=== PATIENT | male | born 2000 | race Caucasian/White ===

== ENCOUNTER 2023-07-06 17:11 | Emergency (ER) | payer OTHER, SELFPAY ==
[2023-07-06 17:14] VITALS: BP 167/96; PULSE 73; RESP 18; TEMP 36.9; O2SAT 99
[2023-07-06 17:21] VITALS: O2SAT 100
--- NOTE | 2023-07-06 17:23 | ED.DENTAL1 ---
HPI - Dental/Oral General Chief complaint: Dental/Oral Stated complaint: Dental Pain Time Seen by Provider: 07/06/23 17:18 Source: patient Mode of arrival: walk-in Limitations: no limitations History of Present Illness HPI Narrative: 22-year-old male presents her chief complaint of dental pain. Patient has multiple dental caries. No facial edema or abscesses appreciated. Patient has chronic pain to dentition #3 and four.Patient states he wasTo follow-up with his dentist recently but missed the appointment because he had to work. Patient is afebrile. He is not taking any medications for this recently. Location: Tooth # (3,4) Related Data Previous Rx's Medication Instructions Recorded clindamycin HCl 300 mg capsule 300 mg PO Q8H 10 days #30 caps 07/06/23 Allergies Allergy/AdvReac Type Severity Reaction Status Date / Time No Known Drug Allergies Allergy Verified 07/06/23 17:14 Review of Systems ROS Narrative All Systems are negative except as noted/marked.All systems reviewed and otherwise negative Exam Narrative Exam Narrative: General: The patient is comfortable, alert and oriented x3, well appearing, non toxic in no apparent distress. Head: Atraumatic and normocephalic. Eyes: Normal conjunctiva, no exudates. ENT: The oropharynx is normal. No pharyngeal erythema, uvular edema, tonsillar exudates, asymmetry or trismus. Uvula is midline. Mouth is normal to inspection With the exception of a pain on percussion of the tooth # 3,4 and evidence of dental caries. There is no evidence of facial asymmetry or abscess formation. Floor of the mouth is soft. No tenderness in the submental or submandibular space. No tongue elevation or deviation. The patient has no evidence of periapical abscess, gingivitis, ANUG or other acute pathology. Airway is patent. Neck: The neck demonstrates normal range of motion. No meningeals signs are present. No stridor. No masses or lymphandenopathy noted. Respiratory: No acute distress, lungs are clear to auscultation, no wheezing, rhonchi, or rales noted. No stridor or retractions are noted. Cardiovascular: Regular rate and rhythm Skin: The skin exam shows no evidence of rashes Neuro: Alert and oriented x4, normal speech Lymphatic: No cervical lymphadenopathy Constitutional Vital Signs, click to edit/add: Last Vital Signs Temp 98.4 F 07/06/23 17:14 Pulse 73 07/06/23 17:14 Resp 18 07/06/23 17:14 BP 167/96 H 07/06/23 17:14 Pulse Ox 100 07/06/23 17:21 O2 Del Method Room Air 07/06/23 17:21 Course Vital Signs Vital signs: Vital Signs Temperature 98.4 F 07/06/23 17:14 Pulse Rate 73 07/06/23 17:14 Respiratory Rate 18 07/06/23 17:14 Blood Pressure 167/96 H 07/06/23 17:14 Pulse Oximetry 99 07/06/23 17:14 Temperature 98.4 F 07/06/23 17:14 Pulse Rate 73 07/06/23 17:14 Respiratory Rate 18 07/06/23 17:14 Blood Pressure 167/96 H 07/06/23 17:14 Pulse Oximetry 100 07/06/23 17:21 Oxygen Delivery Method Room Air 07/06/23 17:21 MDM - Dental/Oral MDM Narrative Medical decision making narrative: Patient presented with chronic dental pain which has worsened over last several days. No acute abscess appreciated. Patient be given a prescription for clindamycin. Encouraged follow-up with his dentist. Wrist return to the emergency room were discussed. Patient also be discharged home with dental anesthesia from here in the emergency room. Differential Diagnosis Differential diagnosis: Likely dental caries, toothache and dental abscess Discharge Plan Discharge Chief Complaint: Dental/Oral Clinical Impression: Dental caries, Toothache Patient Disposition: Home, Self-Care Time of Disposition Decision: 17:22 Condition: Good Prescriptions / Home Meds: New clindamycin HCl 300 mg capsule 300 mg PO Q8H 10 Days Qty: 30 0RF Instructions: Toothache (ED) Stand Alone Forms: Portal Instructions Referrals: Physician,Non-Staff, MD [Primary Care Provider] - 1 week
[2023-07-06] MEDS: BENZOCAINE 30 ML, lidocaine HCL 15 ML MM (17:30)
== END 2023-07-06 17:38 | disposition home or self-care (01) ==
PROVIDERS: Emergency Provider Emergency Medicine Emergency Medical Services
DX: K02.9 Dental caries, unspecified (principal); K08.89 Other specified disorders of teeth and supporting structures
CPT/HCPCS: 99283

== ENCOUNTER 2023-10-11 05:49 | Observation (INO) | payer OTHER, SELFPAY ==
[2023-10-11] VITALS (32 sets, daily range): BP systolic 108–147; BP diastolic 60–94; PULSE 49–93; TEMP 36.3–36.6; O2SAT 95–100; BMI 22.4
--- NOTE | 2023-10-11 | XR_ITS ---
The [address] [address] Patient Name: YOKO ANGEL MRN: [id number] date: 2000 Sex: M Assigned Patient Location: ER Current Patient Location: ER Accession/Order Number: [id number] Exam Date: 10/11/2023 09:25 Report Date: 10/11/2023 09:38 At the request of: BRYCE MEREDITH Procedure: XR foreign body eye EXAMINATION: XR foreign body eye HISTORY: pre MRI COMPARISON: No relevant comparison available. FINDINGS: ORBITS: Negative for a metallic foreign body. OTHER: Negative. XR/XR foreign body eye IMPRESSION: 1. No metallic foreign body within the orbits. Electronically authenticated by: HAO HODGE Date: 10/11/2023 09:38
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
--- NOTE | 2023-10-11 06:37 | CT_ITS ---
The [address] [address] Patient Name: YOKO ANGEL MRN: [id number] date: 2000 Sex: M Assigned Patient Location: ER Current Patient Location: ER Accession/Order Number: [id number] Exam Date: 10/11/2023 07:00 Report Date: 10/11/2023 07:35 At the request of: VIOLA MARKER Procedure: CT stroke head/brain wo con EXAMINATION: CT stroke head/brain wo con HISTORY: right sided weakness COMPARISON: No relevant comparison available. TECHNIQUE: Axial CT images were obtained without IV contrast. Dose reduction techniques were achieved by using automated exposure control and/or adjustment of mA and/or kV according to patient size and/or use of iterative reconstruction technique. FINDINGS: BRAIN: No edema, hemorrhage, mass, acute infarction, or inappropriate atrophy. CSF SPACES: No hydrocephalus, subarachnoid hemorrhage, or mass. Appropriate for age. SKULL: No fracture, mass, or other significant visible lesion. SINUSES: No significant mucosal thickening or fluid on the limited views. ORBITS: No appreciable abnormality on the limited views. OTHER: Negative CT/CT stroke head/brain wo con IMPRESSION: 1. Normal CT appearance of the brain. Findings discussed with Ginny in the emergency department via telephone to be relayed to Dr. Gutierrez. Electronically authenticated by: HAO HODGE Date: 10/11/2023 07:35
--- NOTE | 2023-10-11 06:37 | ECG_ITS ---
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
--- NOTE | 2023-10-11 06:40 | ED.NEUROSD1 ---
HPI - Neuro Symptoms/Deficit General Chief Complaint: Neuro Symptoms/Deficit Stated Complaint: right side numbness Time Seen by Provider: 10/11/23 06:12 Source: patient Mode of arrival: walk-in Limitations: no limitations History of Present Illness HPI Narrative: This 22-year-old male presents to the emergency department complaining of right-sided weakness and numbness as well as pain in his neck and right side of his shoulder and right rib cage area. The patient states that 2 days ago he had a chiropractic manipulation of his neck and ribs. He states he had this done because he gets out of line due to his job. 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 He states that yesterday he felt achy in his neck and ribs however this morning when he woke up and got out of bed he fell weakness on the right side. He states that he has ongoing pain in the back of his neck down the right shoulder blade area and his whole right side feels weak and numb and tingling. He states that he had to lie on the floor to get his pants on this morning. He is walking with a limp. He does not have any slurred speech or confusion. He does not smoke. He denies any chest pain or shortness of breath. He denies any abdominal pain nausea vomiting or diarrhea. He has not had any loss of bowel or bladder control. He also offered that he had to drive to the emergency department using his left foot because he could not he controls in the car with his right foot. He states he went to bed last night around 10 PM and although he was having pain he was not weak, numb or tingling. He woke up this morning at 5am with these symptoms. Quality: Reports weak, numb and tingling Context: Reports sudden onset Related Data Home Medications ?Medication ?Instructions ?Recorded ?Confirmed No Known Home Medications 10/11/23 10/11/23 Allergies Allergy/AdvReac Type Severity Reaction Status Date / Time No Known Drug Allergies Allergy Verified 10/11/23 05:57 Review of Systems ROS Status of ROS 10 or more systems reviewed and unremarkable except as noted in history and below Exam Narrative Exam Narrative: Nurses note and vital signs reviewed and patient is not hypoxic. General: The patient appears well and in no apparent distress. Patient is resting comfortably on cart. Skin: Warm, dry, no pallor noted. There is no rash noted. Head: Normocephalic, atraumatic Eye: Normal conjunctiva, no drainage, EOMI. PERRL. Vision is grossly intact Ears, Nose, Mouth, and Throat: oral mucosa is moist. Nares patent. Mouth without vesicles. Ear canals patent. Tm's without Erythema Neck: supple, no pulsatile masses appreciated Cardiovascular: Regular Rate and Rhythm S1S2, no murmurs, rubs or gallops appreciated, pulses are brisk and equal bilaterally Respiratory: Patient is in no distress, no accessory muscle use, lungs are clear to auscultation, no wheezing, rales or rhonchi Back: tenderness to right posterior thoracic region, no midline bony vertebral tenderness or step-off GI: Normal bowel sounds, no tenderness to palpation, no masses appreciated. No rebound, guarding, or rigidity noted. Musculoskeletal: The patient has no evidence of calf tenderness, no pitting edema, symmetrical pulses noted bilaterally Neurological: A&O x4, normal speech, no facial droop, distribution clerk strength is diminished in the right hand- he is unable to approximate the thumb and fingers and unable to make a fist, he is unable to perform pronator testing due to weakness of the RUE, he has RLE weakness and is unable to raise his right leg off of the stretcher and hold it up against gravity. No saddle anesthesia appreciated but there is decreased sensation to the right upper and lower extremity, reflexes are increased on the right lower extremity. He is using his right hand to hold his phone and test his . Psychiatric: Cooperative, slightly anxious Constitutional Vital Signs, click to edit/add: Last Vital Signs Temp 97.4 F L 10/11/23 05:52 Pulse 59 L 10/11/23 05:52 Resp 16 10/11/23 05:52 BP 130/72 10/11/23 05:52 Pulse Ox 100 10/11/23 05:52 O2 Del Method Room Air 10/11/23 05:52 Course Vital Signs Vital signs: Vital Signs Temperature 97.4 F L 10/11/23 05:52 Pulse Rate 59 L 10/11/23 05:52 Respiratory Rate 16 10/11/23 05:52 Blood Pressure 130/72 10/11/23 05:52 Pulse Oximetry 100 10/11/23 05:52 Oxygen Delivery Method Room Air 10/11/23 05:52 Temperature 97.4 F L 10/11/23 05:52 Pulse Rate 59 L 10/11/23 05:52 Respiratory Rate 16 10/11/23 05:52 Blood Pressure 130/72 10/11/23 05:52 Pulse Oximetry 100 10/11/23 05:52 Oxygen Delivery Method Room Air 10/11/23 05:52 MDM - Neuro Symptoms/Deficit Lab Data Labs: Lab Results 10/11/23 Range/Units 06:44 WBC 7.0 (4.0-11.0) 10^3/uL RBC 5.13 (4.70-6.10) 10^6/uL Hgb 15.1 (14.0-18.0) g/dL Hct 44.5 (42.0-54.0) % MCV 86.7 (80.0-94.0) fL MCH 29.4 (25.9-34.0) pg MCHC 33.9 (29.9-35.2) g/dL RDW 12.7 (11.0-15.0) % Plt Count 296 (150-450) 10^3/uL MPV 9.7 (9.5-13.5) fL Neut % (Auto) 49.2 (43.0-75.0) % Lymph % (Auto) 31.3 (20.5-60.0) % [place] % (Auto) 11.9 (1.7-12.0) % Eos % (Auto) 6.5 (0.9-7.0) % Baso % (Auto) 1.0 (0.2-2.0) % Neut # (Auto) 3.4 (1.4-6.5) 10^3/uL Lymph # (Auto) 2.2 (1.2-3.8) 10^3/uL [place] # (Auto) 0.8 (0.3-0.8) 10^3/uL Eos # (Auto) 0.5 (0.0-0.7) 10^3/uL Baso # (Auto) 0.1 (0.0-0.1) 10^3/uL Abs Immat Gran (auto) 0.01 (0.00-0.03) 10^3/uL Imm/Tot Granulo (auto) 0.1 (0.0-0.5) % Discharge Plan Discharge Chief Complaint: Neuro Symptoms/Deficit Clinical Impression: Acute right-sided weakness Patient Disposition: Still a Patient Prescriptions / Home Meds: No Action No Known Home Medications Print Language: Macedonian Referrals: Physician,Non-Staff, MD [Primary Care Provider] - 1 week
[2023-10-11 06:54] LABS: Basophils Absolute Auto 0.1 10^3/uL (0.0-0.1); Eosinophils Absolute Auto 0.5 10^3/uL (0.0-0.7); Eosinophils Percent Auto 6.5 % (0.9-7.0); Hematocrit 44.5 % (42.0-54.0); Hemoglobin 15.1 g/dL (14.0-18.0); Immature Granulocytes Abs Auto 0.01 10^3/uL (0.00-0.03); Immature Granulocytes Pct Auto 0.1 % (0.0-0.5); Lymphocytes Absolute Auto 2.2 10^3/uL (1.2-3.8); Lymphocytes Percent Auto 31.3 % (20.5-60.0); Mean Corpuscular HGB Conc 33.9 g/dL (29.9-35.2); Mean Corpuscular Hemoglobin 29.4 pg (25.9-34.0); Mean Corpuscular Volume 86.7 fL (80.0-94.0); Mean Platelet Volume 9.7 fL (9.5-13.5); Monocytes Absolute Auto 0.8 10^3/uL (0.3-0.8); Monocytes Percent Auto 11.9 % (1.7-12.0); Neutrophils Absolute Auto 3.4 10^3/uL (1.4-6.5); Neutrophils Percent Auto 49.2 % (43.0-75.0); Platelet Count 296 10^3/uL (150-450); Red Blood Count 5.13 10^6/uL (4.70-6.10); Red Cell Distribution Width 12.7 % (11.0-15.0)
[2023-10-11 07:06] LABS: Alanine Aminotransferase 31 U/L (16-63); Albumin Globulin Ratio 1.3; Alkaline Phosphatase 73 U/L (46-116); Anion Gap 14.2; Aspartate Amino Transferase 12 U/L (15-37); BUN Creatinine Ratio 14.9; Bilirubin Total 2.5 mg/dL (0.2-1.0); Calcium 9.3 mg/dL (8.5-10.1); Carbon Dioxide 26.3 mmol/L (21.0-32.0); Chloride 104 mmol/L (98-107); Estimated GFR (African America >60 (>=60); Estimated GFR (Non-African Ame >60 (>=60); Glucose 79 mg/dL (74-106); Potassium 3.5 mmol/L (3.5-5.1); Sodium 141 mmol/L (136-145)
[2023-10-11 07:08] LABS: Glucometer 105 mg/dL (74-106)
[2023-10-11 07:09] LABS: Lactate/Lactic Acid 1.1 mmol/L (0.4-2.0)
[2023-10-11 07:10] LABS: Creatine Kinase 121 U/L (39-308); Troponin I High Sensitivity <4.0 pg/mL (4.0-76.1)
--- NOTE | 2023-10-11 07:33 | CT_ITS ---
[address] [address] Patient Name: YOKO ANGEL MRN: [id number] date: 2000 Sex: M Assigned Patient Location: ER Current Patient Location: Accession/Order Number: [id number] Exam Date: 10/11/2023 07:42 Report Date: 10/11/2023 08:30 At the request of: BRYCE MEREDITH Procedure: CT angio neck EXAMINATION: CT angio head, CT angio neck HISTORY: right sided weakness COMPARISON: Noncontrast CT head 10/11/2023. TECHNIQUE: Contrast enhanced head CT arteriogram was performed. Scanning performed during the arterial phase from the thoracic inlet to the [place]. 3D reconstructions were rendered on a separate 3D workstation to evaluate vascular anatomy. Dose reduction techniques were achieved by using automated exposure control and/or adjustment of mA and/or kV according to patient size and/or use of iterative reconstruction technique. Carotid stenosis was measured utilizing NASCET criteria. FINDINGS: NECK FINDINGS: No acute soft tissue abnormalities in the neck. Airway is patent. Normal thyroid. Visualized lungs are clear. No acute osseous abnormalities. VASCULATURE FINDINGS: Arch and Subclavian Arteries: Standard three vessel arch. Subclavian arteries are normal bilaterally. Common Carotids: Normal bilaterally. ICAs: Patent bilaterally to the carotid terminus. MCAs: Normal bilaterally. ACAs: Normal bilaterally. P-Comms: Visualized bilaterally. A 0.3 x 0.3 cm conical infundibulum is present at the left posterior communicating artery origin. Vertebral Arteries: Normal to the confluence with the basilar artery. Left dominant vertebral system. Basilar Artery: Normal. customer care specialist: Normal bilaterally. Dural venous sinuses: Patent. CT/CT angio neck IMPRESSION: 1. No large vessel arterial occlusion, high-grade narrowing, or evidence of dissection in the head or neck. 2. A 0.3 x 0.3 cm conical infundibulum is present at the left posterior communicating artery origin. Electronically authenticated by: AUDRA COWART Date: 10/11/2023 08:30
--- NOTE | 2023-10-11 07:33 | CT_ITS ---
[address] [address] Patient Name: YOKO ANGEL MRN: [id number] date: 2000 Sex: M Assigned Patient Location: ER Current Patient Location: ER Accession/Order Number: [id number] Exam Date: 10/11/2023 07:42 Report Date: 10/11/2023 08:30 At the request of: BRYCE MEREDITH Procedure: CT angio head EXAMINATION: CT angio head, CT angio neck HISTORY: right sided weakness COMPARISON: Noncontrast CT head 10/11/2023. TECHNIQUE: Contrast enhanced head CT arteriogram was performed. Scanning performed during the arterial phase from the thoracic inlet to the [place]. 3D reconstructions were rendered on a separate 3D workstation to evaluate vascular anatomy. Dose reduction techniques were achieved by using automated exposure control and/or adjustment of mA and/or kV according to patient size and/or use of iterative reconstruction technique. Carotid stenosis was measured utilizing NASCET criteria. FINDINGS: NECK FINDINGS: No acute soft tissue abnormalities in the neck. Airway is patent. Normal thyroid. Visualized lungs are clear. No acute osseous abnormalities. VASCULATURE FINDINGS: Arch and Subclavian Arteries: Standard three vessel arch. Subclavian arteries are normal bilaterally. Common Carotids: Normal bilaterally. ICAs: Patent bilaterally to the carotid terminus. MCAs: Normal bilaterally. ACAs: Normal bilaterally. P-Comms: Visualized bilaterally. A 0.3 x 0.3 cm conical infundibulum is present at the left posterior communicating artery origin. Vertebral Arteries: Normal to the confluence with the basilar artery. Left dominant vertebral system. Basilar Artery: Normal. captain room service: Normal bilaterally. Dural venous sinuses: Patent. CT/CT angio head IMPRESSION: 1. No large vessel arterial occlusion, high-grade narrowing, or evidence of dissection in the head or neck. 2. A 0.3 x 0.3 cm conical infundibulum is present at the left posterior communicating artery origin. Electronically authenticated by: AUDRA COWART Date: 10/11/2023 08:30
--- NOTE | 2023-10-11 09:05 | MR_ITS ---
The [address] [address] Patient Name: YOKO ANGEL MRN: [id number] date: 2000 Sex: M Assigned Patient Location: ER Current Patient Location: MS Accession/Order Number: [id number] Exam Date: 10/11/2023 09:25 Report Date: 10/11/2023 10:21 At the request of: BRYCE MEREDITH Procedure: MR head/brain wo con MR head/brain wo con, 10/11/2023 9:25 AM EDT INDICATION: Right-sided weakness COMPARISON: Prior CT and CTA of the head dated 10/11/2023 TECHNIQUE: Multiplanar, multisequential MRI images of brain were obtained without injection of contrast. FINDINGS: The cerebral sulci as well as ventricular system are appropriate for age. There is no restricted diffusion. There is no intracranial mass, mass effect, midline shift, intra or extra-axial fluid collection or large hemorrhage. Normal flow-void in the intracranial vessels is noted. Retention cyst within the left maxillary sinus is noted. Mild mucosal thickening within the sphenoid and maxillary sinuses. The visualized portions of orbits, mastoid air cells as well as remainder of paranasal sinuses are unremarkable. MR/MR head/brain wo con IMPRESSION: No acute intracranial process is noted. Electronically authenticated by: OTONIEL KHOURY Date: 10/11/2023 10:21
--- NOTE | 2023-10-11 09:12 | ED.NEUROSD1 ---
HPI - Neuro Symptoms/Deficit General Chief Complaint: Neuro Symptoms/Deficit Stated Complaint: right side numbness Time Seen by Provider: 10/11/23 06:12 Source: patient Mode of arrival: walk-in Limitations: no limitations History of Present Illness HPI Narrative: The patient was initially seen by Dr. Calderon and signed out to me after discussing the case with her thoroughly. Please see her full history and physical exam. Quality: Reports weak, numb and tingling Related Data Home Medications ?Medication ?Instructions ?Recorded ?Confirmed No Known Home Medications 10/11/23 10/11/23 Allergies Allergy/AdvReac Type Severity Reaction Status Date / Time No Known Drug Allergies Allergy Verified 10/11/23 05:57 [facility] Medical History (Updated 10/11/23 @ 08:51 by Yuri Espinosa) No significant medical problems Exam Constitutional Vital Signs, click to edit/add: Last Vital Signs Temp 97.4 F L 10/11/23 05:52 Pulse 93 H 10/11/23 08:06 Resp 18 10/11/23 08:06 BP 111/76 10/11/23 08:06 Pulse Ox 100 10/11/23 08:06 O2 Del Method Room Air 10/11/23 05:52 Course Vital Signs Vital signs: Vital Signs Temperature 97.4 F L 10/11/23 05:52 Pulse Rate 59 L 10/11/23 05:52 Respiratory Rate 16 10/11/23 05:52 Blood Pressure 130/72 10/11/23 05:52 Pulse Oximetry 100 10/11/23 05:52 Oxygen Delivery Method Room Air 10/11/23 05:52 Temperature 97.4 F L 10/11/23 05:52 Pulse Rate 93 H 10/11/23 08:06 Respiratory Rate 18 10/11/23 08:06 Blood Pressure 111/76 10/11/23 08:06 Pulse Oximetry 100 10/11/23 08:06 Oxygen Delivery Method Room Air 10/11/23 05:52 MDM - Neuro Symptoms/Deficit MDM Narrative Medical decision making narrative: My physical exam shows that the patient has significant weakness in his right arm and right leg. He is able to lift each off of the bed a few inches but cannot sustain and cannot lift a significant distance. He has subjective numbness in the right arm and right leg as well. CT brain was negative and CTA is also negative. I have discussed the case with Dr. Whatley at [facility] and he feels that since the patient does not need intervention that the patient can be admitted here and we will obtain an MRI and the patient will be given an aspirin as well. Findings are discussed thoroughly with the patient and he was kept up-to-date in terms of the test results. Differential Diagnosis Differential diagnosis: Likely other (Stroke, TIA, arterial dissection) Lab Data Attestation: I reviewed the patient's lab results. Labs: Lab Results 10/11/23 10/11/23 Range/Units 06:44 07:07 WBC 7.0 (4.0-11.0) 10^3/uL RBC 5.13 (4.70-6.10) 10^6/uL Hgb 15.1 (14.0-18.0) g/dL Hct 44.5 (42.0-54.0) % MCV 86.7 (80.0-94.0) fL MCH 29.4 (25.9-34.0) pg MCHC 33.9 (29.9-35.2) g/dL RDW 12.7 (11.0-15.0) % Plt Count 296 (150-450) 10^3/uL MPV 9.7 (9.5-13.5) fL Neut % (Auto) 49.2 (43.0-75.0) % Lymph % (Auto) 31.3 (20.5-60.0) % [place] % (Auto) 11.9 (1.7-12.0) % Eos % (Auto) 6.5 (0.9-7.0) % Baso % (Auto) 1.0 (0.2-2.0) % Neut # (Auto) 3.4 (1.4-6.5) 10^3/uL Lymph # (Auto) 2.2 (1.2-3.8) 10^3/uL [place] # (Auto) 0.8 (0.3-0.8) 10^3/uL Eos # (Auto) 0.5 (0.0-0.7) 10^3/uL Baso # (Auto) 0.1 (0.0-0.1) 10^3/uL Abs Immat Gran (auto) 0.01 (0.00-0.03) 10^3/uL Imm/Tot Granulo (auto) 0.1 (0.0-0.5) % Sodium 141 (136-145) mmol/L Potassium 3.5 (3.5-5.1) mmol/L Chloride 104 (98-107) mmol/L Carbon Dioxide 26.3 (21.0-32.0) mmol/L Anion Gap 14.2 BUN 13.0 (7.0-18.0) mg/dL Creatinine 0.87 (0.70-1.30) mg/dL Est GFR ( Amer) >60 (>=60) Est GFR (Non-Af Amer) >60 (>=60) BUN/Creatinine Ratio 14.9 Glucose 79 (74-106) mg/dL Lactate 1.1 (0.4-2.0) mmol/L Calcium 9.3 (8.5-10.1) mg/dL Total Bilirubin 2.5 H (0.2-1.0) mg/dL AST 12 L (15-37) U/L ALT 31 (16-63) U/L Alkaline Phosphatase 73 (46-116) U/L Total Creatine Kinase 121 (39-308) U/L Troponin I High Sens <4.0 L (4.0-76.1) pg/mL Total Protein 7.0 (6.4-8.2) g/dL Albumin 4.0 (3.4-5.0) g/dL Globulin 3.0 g/dL Albumin/Globulin Ratio 1.3 POC Glucose 105 (74-106) mg/dL Imaging Data CT scan - head: Radiologist's impression: ITS Impressions Brain CT 10/11/23 06:37 IMPRESSION: 1. Normal CT appearance of the brain. Findings discussed with Ginny in the emergency department via telephone to be relayed to Dr. Gutierrez. Electronically authenticated by: HAO HODGE Date: 10/11/2023 07:35 Head CTA 10/11/23 07:33 IMPRESSION: 1. No large vessel arterial occlusion, high-grade narrowing, or evidence of dissection in the head or neck. 2. A 0.3 x 0.3 cm conical infundibulum is present at the left posterior communicating artery origin. Electronically authenticated by: AUDRA COWART Date: 10/11/2023 08:30 Neck CTA 10/11/23 07:33 IMPRESSION: 1. No large vessel arterial occlusion, high-grade narrowing, or evidence of dissection in the head or neck. 2. A 0.3 x 0.3 cm conical infundibulum is present at the left posterior communicating artery origin. Electronically authenticated by: AUDRA COWART Date: 10/11/2023 08:30 Discharge Plan Discharge Chief Complaint: Neuro Symptoms/Deficit Clinical Impression: Acute right-sided weakness Patient Disposition: Admitted As Inpatient Time of Disposition Decision: 09:14 Condition: Fair
[2023-10-11] MEDS: ASPIRIN 81 MG TAB.CHEW 324 MG PO (10:02)
--- NOTE | 2023-10-11 11:14 | MR_ITS ---
The [address] [address] Patient Name: YOKO ANGEL MRN: [id number] date: 2000 Sex: M Assigned Patient Location: MS Current Patient Location: [place] Accession/Order Number: [id number] Exam Date: 10/11/2023 12:35 Report Date: 10/11/2023 13:50 At the request of: SHAIKH CAROLINA Procedure: MR cervical spine wo con EXAM: MR cervical spine wo con HISTORY: Right-sided weakness following chiropractic adjustment 2 days ago, Suspected cord compression COMPARISON: MR brain performed earlier the same day, CTA neck 10/11/2023. TECHNIQUE: Multiplanar multisequence MR imaging of the cervical spine was performed without intravenous contrast. FINDINGS: Alignment: No substantial subluxation. Vertebrae: Vertebral body heights are maintained. No marrow signal abnormality to suggest neoplasm. Spinal cord: Spinal cord demonstrates normal signal and contour. Craniocervical junction: No focal abnormality. Degenerative changes: C1-C2: No substantial canal or foraminal stenosis. C2-C3: No substantial canal or foraminal stenosis. C3-C4: Mild right uncovertebral arthropathy. No substantial canal or left foraminal stenosis. Mild to moderate right foraminal stenosis. C4-C5: Minimal disc bulge. Minimal canal stenosis. Moderate right and minimal left foraminal stenosis. C5-C6: Mild bilateral uncovertebral and minimal right facet arthropathy. Moderate canal stenosis. Mild to moderate left and mild right foraminal stenosis. C6-C7: No substantial canal or foraminal stenosis. C7-T1: No substantial canal or foraminal stenosis. Visualized portion of the thoracic spine: No high grade canal stenosis. Additional Comments: Asymmetric small size of the right vertebral artery better evaluated on dedicated CTA head and neck from 10/11/2023. MR/MR cervical spine wo con IMPRESSION: 1. No abnormal spinal cord signal. 2. Minimal degenerative change of the cervical spine with moderate canal stenosis at C5-C6. 3. Moderate right foraminal stenosis at C4-C5. Electronically authenticated by: PAO GONSALVES Date: 10/11/2023 13:50
--- NOTE | 2023-10-11 12:10 | CM.NOTE ---
Rounds made with Dr. Alvarado. Dr. Alvarado explains tests to be ordered and plan of care. Scot verbalizes understanding.
--- NOTE | 2023-10-11 14:02 | PM.HP ---
HPI H&P: HPI History of Present Illness Chief complaint: STROKE LIKE SYMPTOMS Narrative: 22 y o male with no sig PMhx came her for right sided UE and LE weakness since this morning. He reports going to Chiropractor 2 days ago and had shoulder,neck manipulation. He reports experiencing neck pain radiating to right shoulder and UE along tingling and numbness. He then work up today and felt he could not move his RUE alogn with numbness/tingling in RLE. He has no chronic medical conditions. He is non smoker, does not drink alcohol and denies drug. His CTH did not show any sig finding nor did his CTA head/neck. MRI brain was ordered in consultation with tele stroke that did not show any acute finding. Given that he was complaining of right UE pain/weakness/numbness - I ordered a MRI spine to r/o acute cord injury/cervical disc herniation that did not show any sig or acute findings. MRI cervical spine revealed Minimal degenerative change of the cervical spine with moderate canal stenosis at C5-C6 and Moderate right foraminal stenosis at C4-C5. Tele stroke is reviewing his images and will provide us with their final recommendation. I order PT/OT, shoulder XR and IV decadron for the patient. Patient reports poorly controlled pain and still unable to move his arm Opioid HPI Opioid Management Most Recent Opioid Data: Last Pain Scale 7 10/11/23 15:09 Last Pain Assessment 10/11/23 15:00 Last MAR Pain Assessment 10/11/23 15:09 Review of Systems ROS Status of ROS 10 or more systems reviewed and unremarkable except as noted in history and below [facility] Medical History (Updated 10/11/23 @ 16:24 by Shaikh Jenny MD) No significant medical problems Family History (Updated 10/11/23 @ 16:22 by Shaikh Jenny MD) Other Family history of stroke Social History (Updated 10/11/23 @ 16:21 by Shaikh Jenny MD) Within the past year, how often did you have a drink containing alcohol: never Score interpretation: A score less than 4 is consistent with normal alcohol consumption. Smoking status: Never smoker Non-prescribed substance use: denies use Meds Home Medications and Allergies Home Medications ?Medication ?Instructions ?Recorded ?Confirmed ?Type No Known Home Medications 10/11/23 10/11/23 History Allergies Allergy/AdvReac Type Severity Reaction Status Date / Time No Known Drug Allergies Allergy Verified 10/11/23 05:57 Exam Constitutional Vital Signs, click to edit/add: Last Vital Signs Temp 97.8 F 10/11/23 10:49 Pulse 55 L 10/11/23 10:49 Resp 18 10/11/23 10:49 BP 113/70 10/11/23 10:49 Pulse Ox 99 10/11/23 10:49 O2 Del Method Room Air 10/11/23 10:49 Documenting provider has reviewed patient's vital signs: yes Common normals: no apparent distress and oriented x3 General appearance: cooperative HENMT Common normals: normocephalic and head/scalp atraumatic Head and scalp: normocephalic and atraumatic Eye Common normals: conjunctivae normal and no scleral icterus Conjunctiva: conjunctiva(e) normal Neck & C-Spine Cervical spine: cervical ROM abnormal, pain with cervical ROM, cervical spine tenderness, paracervical muscle tenderness and paracervical muscle spasm Respiratory Common normals: normal respiratory effort and clear to auscultation bilaterally Effort & inspection: able to speak in complete sentences Auscultation: clear to auscultation bilaterally Cardio Common normals: regular rate, S1 normal heart sound and S2 normal heart sound Rate: regular rate Heart sounds: S1 normal and S2 normal GI Common normals: Normal to inspection, nondistended, normoactive bowel sounds present, soft to palpation, non-tender and no hepatosplenomegaly Palpation: soft and no hepatosplenomegaly Extremity Common normals: no clubbing, cyanosis or edema Neuro Common normals: oriented x3 Speech: speech normal Motor exam: strength abnormal right upper extremity 2 / 5 , lower extremity 4 / 5 Psych Common normals: mental status grossly normal, denies hallucinations, denies homicidal ideation and denies suicidal ideation Results Labs Labs: Short CBC 10/11/23 Range/Units 06:44 WBC 7.0 (4.0-11.0) 10^3/uL Hgb 15.1 (14.0-18.0) g/dL Hct 44.5 (42.0-54.0) % Plt Count 296 (150-450) 10^3/uL BMP 10/11/23 06:44 Sodium 141 Potassium 3.5 Chloride 104 Carbon Dioxide 26.3 BUN 13.0 Creatinine 0.87 Glucose 79 Calcium 9.3 Cardiac Enzymes 10/11/23 Range/Units 06:44 Total Creatine Kinase 121 (39-308) U/L Liver Function 10/11/23 Range/Units 06:44 Total Bilirubin 2.5 H (0.2-1.0) mg/dL AST 12 L (15-37) U/L ALT 31 (16-63) U/L Alkaline Phosphatase 73 (46-116) U/L Albumin 4.0 (3.4-5.0) g/dL Assessment and Plan Assessment and Plan (1) Acute right-sided weakness: (2) Cervical neck pain with evidence of disc disease: Plan Patient presents with acute right UE and LE weakness/numbness. Normal CTH, normal MRI brain. MRI cervical spine ordered as his symptoms started after chiropractor manipulation. No evidence of cord compression. Moderate degenerative disc disease.Awaiting input from stroke neurology. Suspect musculoskeletal etiology - added gabapentin, baclofen and ordered PT/OT Pain is poorly controlled. Follow up and monitor as clinically indicated
[2023-10-11] MEDS: ENOXAPARIN SODIUM 40 MG/0.4 ML SYRINGE SUBQ (14:08)
[2023-10-11] MEDS: BACLOFEN 10 MG TABLET PO ×2 (14:08→21:05)
[2023-10-11] MEDS: DEXAMETHASONE SOD PHOS 4 MG/ML VIAL 10 MG IV (14:08)
[2023-10-11] MEDS: ACETAMINOPHEN 325 MG TABLET 650 MG PO (14:08)
[2023-10-11] MEDS: OXYCODONE HCL 5 MG TABLET PO (14:09)
[2023-10-11] MEDS: GABAPENTIN 300 MG CAPSULE PO (21:05)
[2023-10-12] VITALS (11 sets, daily range): BP systolic 113–125; BP diastolic 67–81; PULSE 50–105; TEMP 36.4–36.6; O2SAT 96–98
[2023-10-12] MEDS: GABAPENTIN 300 MG CAPSULE PO (05:44)
[2023-10-12] MEDS: BACLOFEN 10 MG TABLET PO (05:44)
[2023-10-12] MEDS: ACETAMINOPHEN 325 MG TABLET 650 MG PO (08:54)
[2023-10-12] MEDS: OXYCODONE HCL 5 MG TABLET PO (08:55)
[2023-10-12] MEDS: ENOXAPARIN SODIUM 40 MG/0.4 ML SYRINGE SUBQ (08:55)
[2023-10-12 11:29] LABS: Bilirubin Urine NEGATIVE (NEGATIVE); Blood Urine NEGATIVE (NEGATIVE); Clarity Urine CLEAR (CLEAR); Color Urine YELLOW (YELLOW); Glucose Urine UA 500 mg/dL (NEGATIVE); Ketones Urine NEGATIVE (NEGATIVE); Leukocyte Esterase Urine NEGATIVE (NEGATIVE); Nitrite Urine NEGATIVE (NEGATIVE); Protein Urine NEGATIVE (NEG/TRACE); Specific Gravity Urine 1.025 (1.005-1.025); pH Urine 6.5 (5.0-9.0)
[2023-10-12 11:39] LABS: Calcium Oxalate Crystals Urine FEW; Crystals Seen? Seen #/HPF (None Seen)
[2023-10-12 11:40] LABS: Mucus Urine NONE SEEN (NONE SEEN); RBC Urine 0-2 #/HPF (0-2); WBC Urine 0-2 #/HPF (NONE SEEN)
[2023-10-12 11:42] LABS: Cast Seen? NONE SEEN #/LPF (NONE SEEN); Squamous Epithelial Cell Urine NONE SEEN #/LPF (NONE/RARE)
[2023-10-12 11:44] LABS: Amorphous Sediment Urine FEW; Bacteria Urine TRACE #/HPF (NONE SEEN)
--- NOTE | 2023-10-12 12:19 | CM.NOTE ---
Rounds made with Dr. Alvarado, pt will discharge to home today and f/u with road oiler that pt chooses. Pt does not have a family doctor at this time.
--- NOTE | 2023-10-12 13:35 | P.DS_ITS ---
DS: Providers Provider Date of admission: 10/11/23 10:08 Primary care physician: Non-Staff Physician, Admitting clinician: Shaikh Jenny Attending physician on admission: Shaikh Jenny Consults: 10/11/23 08:59 Consult to Telestroke Routine Reason for consultation: Right-sided weakness 10/11/23 13:59 Occupational Therapy Eval and Treat Routine Reason for consultation: weakness Physical Therapy Eval and Treat Routine Reason for consultation: Weakness Attending physician on discharge: Shaikh Jenny Discharging clinician: Shaikh Jenny Anticipated date of discharge: 10/12/23 DS: Diagnosis Discharge Diagnosis (1) Acute right-sided weakness: (2) Cervical neck pain with evidence of disc disease: DS: Summary Hospital Course Hospital Course: 22 y o male with no sig PMhx came to ED for right sided UE and LE weakness. He reported going to Chiropractor 2 days ago prior and had shoulder,neck manipulation. He initially had right sided UE pain/numbness and tingling along with neck and back pain. He then work up yesterday and felt he could not move his RUE along with numbness/tingling in RLE. His CTH did not show any sig finding nor did his CTA head/neck. MRI brain was ordered in consultation with tele stroke that did not show any acute finding. Given that he was complaining of right UE pain/weakness/numbness - I ordered a MRI spine to r/o acute cord injury/cervical disc herniation that did not show any sig or acute findings. MRI cervical spine revealed moderate canal stenosis at C5-C6 and Moderate right foraminal stenosis at C4-C5. He is still complaining of right UE pain and weakness alongwith neck and back pain. However, there is no need for continued inpatient treatment and his symptoms can me followed up as outpatient. Patient will be discharged on oral gabapentin along with baclofen. He does not have a PCP but he was made an appointment with Dr Matos. Status at Discharge Functional status at discharge: independent ambulation Overall status at discharge: patient is progressing back to baseline Time Spent with Patient Time attestation: Total time spent providing and/or coordinating discharge services: Time spent: greater than 30 minutes Exam Constitutional Vital Signs, click to edit/add: Last Vital Signs Temp 97.5 F L 10/12/23 07:00 Pulse 68 10/12/23 11:46 Resp 18 10/12/23 07:00 BP 125/81 10/12/23 07:00 Pulse Ox 96 10/12/23 11:31 O2 Del Method Room Air 10/12/23 11:31 Documenting provider has reviewed patient's vital signs: yes Common normals: no apparent distress and oriented x3 General appearance: cooperative HENMT Common normals: normocephalic and head/scalp atraumatic Head and scalp: normocephalic and atraumatic Eye Common normals: conjunctivae normal and no scleral icterus Conjunctiva: conjunctiva(e) normal Neck & C-Spine Cervical spine: pain with cervical ROM Respiratory Common normals: normal respiratory effort and clear to auscultation bilaterally Effort & inspection: able to speak in complete sentences Auscultation: clear to auscultation bilaterally Cardio Common normals: regular rate, S1 normal heart sound and S2 normal heart sound Rate: regular rate Heart sounds: S1 normal and S2 normal GI Common normals: Normal to inspection, nondistended, normoactive bowel sounds present, soft to palpation, non-tender and no hepatosplenomegaly Palpation: soft and no hepatosplenomegaly Extremity Common normals: no clubbing, cyanosis or edema Neuro Common normals: oriented x3, moves all extremities and no focal motor deficits Motor exam: strength abnormal right proximal upper extremity 3 / 5 Psych Common normals: mental status grossly normal, denies hallucinations, denies homicidal ideation and denies suicidal ideation DS: Data Data Completed and Pending Labs on day of discharge: Labs from last 24 hours 10/12/23 10:40 Urine Color Yellow Urine Clarity Clear Urine pH 6.5 Ur Specific [place] 1.025 Urine Protein Negative Urine Glucose (UA) 500 A Urine Ketones Negative Urine Occult Blood Negative Urine Nitrite Negative Urine Bilirubin Negative Urine Urobilinogen 1.0 Ur Leukocyte Esterase Negative Urine RBC 0-2 Urine WBC 0-2 A Ur Squamous Epith Cells None seen Urine Crystals Seen A Calcium Oxalate Crystal Few Amorphous Sediment Few Urine Bacteria Trace A Urine Casts None seen Urine Mucus None seen Discharge Plan Discharge Disposition: Home, Self-Care Condition: Fair Discharge Medications: New gabapentin 300 mg capsule 300 mg PO Q8H Qty: 90 0RF baclofen 10 mg tablet 10 mg PO Q8H Qty: 90 0RF Activity: increase activity as tolerated Diet: advance to your usual diet Print Language: Yakut Forms: Portal Instructions Follow Up Appointments: October 14 @ 10am with Dr. Long [address] [place] [address] 1, [facility] [phone]
--- NOTE | 2023-10-16 14:33 | CM.DCFOLLOWU ---
1st attempt 10/16/23, no answer
--- NOTE | 2023-10-17 12:31 | CM.DCFOLLOWU ---
Person spoke with: patient's mother How are you feeling? well How is your pain? no pain Did you understand your discharge instructions? yes Do you have any questions about your discharge instructions? no Were you given any prescriptions at discharge?yes Were you able to get your prescriptions filled? yes Do you understand how to take your medications as ordered? yes Do you have any questions about your follow up appointment and do you plan to keep your follow up appointment? no questions, had follow up already Is there anything else that you would like to discuss? no Questions/Comments/Concerns/Other: N/A
== END 2023-10-12 14:42 | disposition home or self-care (01) ==
LOC: ER 09:14 → MS 11:38
PROVIDERS: Emergency Medicine; Admitting Provider Internal Medicine; Emergency Provider Emergency Medicine; Visit Provider Internal Medicine
DX: R53.1 Weakness (principal); M54.2 Cervicalgia; M48.02 Spinal stenosis, cervical region
CPT/HCPCS: 36415; 70030; 70450; 70496; 70498; 70551; 72141; 80053; 81001; 82550; 82948; 83605; 84484; 85025; 93005; 94761; 96372; 96374; 97112; 97163; 97166; 99285; G0378; J1094; Q3014; Q9967

== ENCOUNTER 2024-11-01 15:46 | Emergency (ER) | payer OTHER, SELFPAY ==
[2024-11-01 15:50] VITALS: BP 154/84; PULSE 100; TEMP 37.3; O2SAT 99; BMI 20.3
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
--- NOTE | 2024-11-01 15:52 | XR_ITS ---
The [address] [address] Patient Name: YOKO ANGEL MRN: [id number] date: 2000 Sex: M Assigned Patient Location: ER Current Patient Location: ED.MAIN Accession/Order Number: [id number] Exam Date: 11/01/2024 16:15 Report Date: 11/01/2024 16:16 At the request of: REGAN MULLINS Procedure: XR foot LT min 3V 3 views left foot plain film COMPARISON:None HISTORY: Left foot injury. Dorsal foot pain ACUTE FINDINGS: None DEGENERATIVE CHANGE: Unremarkable SOFT TISSUE FINDINGS: Unremarkable JOINT EFFUSION: None POSTOP CHANGES: None BONE MINERALIZATION: Adequate XR/XR foot LT min 3V IMPRESSION: No acute displaced fracture Impression dictated by: Roberto Ann M.D. 11/01/2024 4:16 PM Dictation Location: [place] [address] Electronically authenticated by: [id number] Y Date: 11/01/2024 16:16
--- NOTE | 2024-11-01 16:13 | ED.LOWEXI1 ---
HPI HPI - Extremity Injury (Lower) General Chief Complaint: Extremity Injury, Lower Stated Complaint: LE INJURY Time Seen by Provider: 11/01/24 15:47 Source: patient Mode of arrival: walk-in Limitations: no limitations History of Present Illness HPI Narrative: Patient is a 23-year-old male who presents to the emergency department for left foot pain that began 2 days ago when he dropped a rock on his steel toe boots. He complains of pain to left great toe radiating into the first metatarsal. He is ambulatory. He reports pain with putting pressure on that aspect of his foot. No medicines prior to arrival. Patient is preoccupied on his ipad during the duration of the interview Related Data Previous Rx's ?Medication ?Instructions ?Recorded baclofen 10 mg tablet 10 mg PO Q8H #90 tabs 10/12/23 gabapentin 300 mg capsule 300 mg PO Q8H #90 caps 10/12/23 naproxen sodium 550 mg tablet 550 mg PO BID PRN pain #10 tabs 11/01/24 Allergies Allergy/AdvReac Type Severity Reaction Status Date / Time No Known Drug Allergies Allergy Verified 11/01/24 15:52 Opioid HPI Opioid Management Most Recent Pain and Opioid Data: Last Pain Scale 7 Today, 15:50 Last Pain Intensity 7 10/12/23, 12:57 Last ORT Total Score 1 10/11/23, 10:49 Last ORT Risk Category Low Risk 10/11/23, 10:49 Review of Systems ROS Constitutional Denies: fever or chills Ears, nose, mouth, and throat Denies: throat pain Respiratory Denies: shortness of breath Gastrointestinal Denies: nausea or vomiting Musculoskeletal Reports: extremity pain; Denies: back pain, neck pain or extremity swelling Integumentary/Breast Denies: rash Neurological Denies: numbness in extremities or weakness in extremities Hematologic/Lymphatic Denies: easy bruising or easy bleeding [facility] Medical History (Updated 11/01/24 @ 16:12 by HARPREET Mckeon) Cervical neck pain with evidence of disc disease ?M50.90 - Cervical disc disorder, unspecified, unspecified cervical region (ICD-10) Acute right-sided weakness ?R53.1 - Weakness (ICD-10) No significant medical problems Family History (Updated 10/11/23 @ 16:22 by Shaikh Jenny MD) Other Family history of stroke Social History Within the past year, how often did you have a drink containing alcohol: never Score interpretation: A score less than 4 is consistent with normal alcohol consumption. Smoking status: Never smoker Non-prescribed substance use: denies use Little interest or pleasure in doing things: not at all Feeling down, depressed, or hopeless: not at all Exam Narrative Exam Narrative: Gen.: Awake, alert, in no distress Head: Normocephalic, atraumatic ENT: Moist mucous membranes Respiratory: No respiratory distress Extremities: 2+ left DP pulse of the foot, no abrasions or wounds noted of the foot. No circumferential swelling. No ecchymosis or evidence of injury. No bony tenderness of the medial or lateral malleolus of the left ankle. Psych: Normal mood and affect Neuro: No focal neuro deficit Skin: Warm, dry, intact Constitutional Vital Signs, click to edit/add: Last Vital Signs Temp 99.1 F 11/01/24 15:50 Pulse 100 H 11/01/24 15:50 Resp 20 11/01/24 15:50 BP 154/84 H 11/01/24 15:50 Pulse Ox 99 11/01/24 15:50 O2 Del Method Room Air 11/01/24 15:50 Course Vital Signs Vital signs: Vital Signs Temperature 99.1 F 11/01/24 15:50 Pulse Rate 100 H 11/01/24 15:50 Respiratory Rate 20 11/01/24 15:50 Blood Pressure 154/84 H 11/01/24 15:50 Pulse Oximetry 99 11/01/24 15:50 Oxygen Delivery Method Room Air 11/01/24 15:50 Temperature 99.1 F 11/01/24 15:50 Pulse Rate 100 H 11/01/24 15:50 Respiratory Rate 20 11/01/24 15:50 Blood Pressure 154/84 H 11/01/24 15:50 Pulse Oximetry 99 11/01/24 15:50 Oxygen Delivery Method Room Air 11/01/24 15:50 MDM - Extremity Injury (Lower) MDM Narrative Medical decision making narrative: Exam is benign for any significant injury. Patient is neurovascularly intact pre and post shoe application. X-rays are unremarkable. NSAIDs given for home. Rest, ice, elevate. Return to the emergency department if symptoms change or worsen. Follow-up PCP SHARED APC VISIT, PHYSICIAN ATTESTATION: [id number] I performed a substantive part of the MDM during the patient?s E/M visit. I personally made or approved the documented management plan and acknowledge its risk of complications. Medical Records Attestation: I reviewed the patient's medical records. Imaging Data XR foot: Attestation: I have reviewed the pertinent imaging results. Discharge Plan Discharge Chief Complaint: Extremity Injury, Lower Clinical Impression: Contusion of left foot, Left foot pain Patient Disposition: Home, Self-Care Time of Disposition Decision: 16:12 Condition: Good Prescriptions / Home Meds: New naproxen sodium 550 mg tablet 550 mg PO BID PRN (Reason: pain) Qty: 10 0RF No Action gabapentin 300 mg capsule 300 mg PO Q8H Qty: 90 0RF baclofen 10 mg tablet 10 mg PO Q8H Qty: 90 0RF Print Language: Armenian Instructions: Foot Contusion (ED) Referrals: Physician,Non-Staff, MD [Primary Care Provider] - 1 week
[2024-11-01] MEDS: KETOROLAC TROMETHAMINE 10 MG TABLET PO (16:25)
== END 2024-11-01 16:32 | disposition home or self-care (01) ==
PROVIDERS: Emergency Provider Emergency Medicine
DX: S90.32XA Contusion of left foot, initial encounter (principal); M79.672 Pain in left foot; W20.8XXA Other cause of strike by thrown, projected or falling object, initial encounter
CPT/HCPCS: 73630; 99284

== ENCOUNTER 2024-12-13 18:11 | Emergency (ER) | payer SELFPAY ==
[2024-12-13 18:13] VITALS: BP 139/100; PULSE 104; TEMP 36.9; O2SAT 99; BMI 20.3
--- NOTE | 2024-12-13 18:17 | ECG_ITS ---
[facility] Test Date: 2024-12-13 Pat Name: YOKO ANGEL Department: Room: - Gender: Male Order Entry Specialist: : 2000 Requested By: [id number] Order Number: [id number] Reading MD: FERNANDO FLOYD Measurements Intervals [place] Rate: 88 P: 74 KS: 134 QRS: 73 QRSD: 84 T: 64 QT: 346 QTc: 392 Interpretive Statements 1100 Sinus rhythm 9110 normal ECG Compared to ECG 10/11/2023 06:49:25 Sinus arrhythmia no longer present Early repolarization no longer present Electronically Signed On 12-16-2024 16:24:19 EDT by FERNANDO FLOYD
--- NOTE | 2024-12-13 18:18 | ED_ITS ---
HPI HPI - General Adult General Chief complaint: Psychiatric Symptoms Stated complaint: SUICIDAL Time Seen by Provider: 12/13/24 18:14 Source: patient Mode of arrival: ambulance History of Present Illness HPI narrative: The patient is a 23-year-old male who presents to the emergency department today for evaluation of concerns for suicidal ideation. He endorses for the past week he has been feeling suicidal without a plan and endorses this due to stressors of going through a divorce and child custody. He reports a week ago he had some superficial cutting to his right forearm and initially mentions today he punched a mirror noticed a small cut to his left hand. He does endorse a history of depression however is not on any medical therapy for this. He states he does not see any behavioral health specialist or any PCP outpatient. He reports a remote history of being hospitalized due to depression at the age of 18. On arrival to the ER he states he was hoping to be admitted for the above concerns. Related Data Previous Rx's ?Medication ?Instructions ?Recorded baclofen 10 mg tablet 10 mg PO Q8H #90 tabs gabapentin 300 mg capsule 300 mg PO Q8H #90 caps 10/11 naproxen sodium 550 mg tablet 550 mg PO BID PRN pain # 10 tabs 11/01/24 Allergies Allergy/AdvReac Type Severity Reaction Status Date / Time No Known Drug Allergies Allergy Verified 11/01/24 15:52 Opioid HPI Opioid Management Most Recent Opioid Data: Last Pain Scale 7 11/01/24, 15:50 Last Pain Intensity 7 10/12/23, 12:57 Last ORT Total Score 1 10/11/23, 10:49 Last ORT Risk Category Low Risk 10/11/23, 10:49 Ur Phencyclidine Scrn, (NEGATIVE) Negative Today, 18:29 Review of Systems ROS Status of ROS 10 or more systems reviewed and unremark able except as noted in history and below [facility] Medical History (Updated 12/13/24 @ 21:00 by Ck Sheets NP) Cervical neck pain with evidence of disc disease ?M50.90 - Cervical disc disorder, unspecified, unspecified cervical region (ICD-10) Acute right-sided weakness ?R53.1 - Weakness (ICD-10) No significant medical problems Family History (Updated 10/11/23 @ 16:22 by Shaikh Jenny MD) Other Family history of stroke Social History Within the past year, how often did you have a drink containing alcohol: never Score interpretation: A score less than 4 is consistent with normal alcohol consumption. Smoking status: Never smoker Non-prescribed substance use: denies use Little interest or pleasure in doing things: not at all Feeling down, depressed, or hopeless: not at all Exam Narrative Exam Narrative: Constituational: Awake/ alert, no apparent distress, well hydrated HENMT: normocephalic, external ears normal, moist oral mucous membranes and oropharynx normal Eyes: EOMI and conjunctivae normal Neck: ROM intact Chest: inspection of chest normal Respiratory: Normal respiratory effort, clear to auscultation bilaterally Cardio: regular rate and regular rhythm GI: soft to palpation and non-tender Back: nontender MSK: ROM intact, +NVI Skin: + Wounds anterior aspect of R forearm, superficial laceration dorsal third MCP R hand Neuro: no focal deficits Psych: +SI no plan, no HI or hallucinations, otherwise mental status grossly normal Constitutional Vital Signs, click to edit/add: Last Vital Signs Temp 98.5 F 12/13/24 18:13 Pulse 104 H 12/13/24 18:13 Resp 18 12/13/24 18:13 BP 139/100 H 12/13/24 18:13 Pulse Ox 99 12/13/24 18:13 O2 Del Method Room Air 12/13/24 18:13 Course Vital Signs Vital signs: Vital Signs Temperature 98.5 F 12/13/24 18:13 Pulse Rate 104 H 12/13/24 18:13 Respiratory Rate 18 12/13/24 18:13 Blood Pressure 139/100 H 12/13/24 18:13 Pulse Oximetry 99 12/13/24 18:13 Oxygen Delivery Method Room Air 12/13/24 18:13 Temperature 98.5 F 12/13/24 18:13 Pulse Rate 104 H 12/13/24 18:13 Respiratory Rate 18 12/13/24 18:13 Blood Pressure 139/100 H 12/13/24 18:13 Pulse Oximetry 99 12/13/24 18:13 Oxygen Delivery Method Room Air 12/13/24 18:13 Medical Decision Making MDM Narrative Medical decision making narrative: Patient is a well-appearing 23-year-old male who presented to the emergency department today for evaluation of concerns for suicidal ideation without a plan and depression. Initial examination vital signs overall stable. Patient has been calm and cooperative and when he presented to the ER was requesting to be admitted to [facility] facility. Medical clearance labs stable with exception to urine drug screen is noted positive for meth, amphetamines, and cannabinoids. Patient was subsequently evaluated by medical crisis who recommends admission to [facility] facility. Patient has 72- hour hold awaiting approval for admission to [facility]. Care endorsed to Dr. Vaughn (ER attending) [id number] for ongoing care. Patient in stable condition. Medical Records Medical records reviewed: Yes I reviewed the patient's medical records Lab Data Lab results reviewed: Yes I reviewed the patient's lab results Labs: Lab Results 12/13/24 Range/Units 18:29 WBC 7.2 (4.0-11.0) 10^3/uL RBC 5.30 (4.70-6.10) 10^6/uL Hgb 15.9 (14.0-18.0) g/dL Hct 46.0 (42.0-54.0) % MCV 86.8 (80.0-94.0) fL MCH 30.0 (25.9-34.0) pg MCHC 34.6 (29.9-35.2) g/dL RDW 13.6 (11.0-15.0) % Plt Count 258 (150-450) 10^3/uL MPV 9.7 (9.5-13.5) fL Neut % (Auto) 62.3 (43.0-75.0) % Lymph % (Auto) 28.2 (20.5-60.0) % [place] % (Auto) 5.1 (1.7-12.0) % Eos % (Auto) 3.1 (0.9-7.0) % Baso % (Auto) 1.0 (0.2-2.0) % Neut # (Auto) 4.5 (1.4-6.5) 10^3/uL Lymph # (Auto) 2.0 (1.2-3.8) 10^3/uL [place] # (Auto) 0.4 (0.3-0.8) 10^3/uL Eos # (Auto) 0.2 (0.0-0.7) 10^3/uL Baso # (Auto) 0.1 (0.0-0.1) 10^3/uL Abs Immat Gran (auto) 0.02 (0.00-0.03) 10^3/uL Imm/Tot Granulo (auto) 0.3 (0.0-0.5) % Sodium 139 (136-145) mmol/L Potassium 3.7 (3.5-5.1) mmol/L Chloride 102 (98-107) mmol/L Carbon Dioxide 30.2 (21.0-32.0) mmol/L Anion Gap 10.5 BUN 10.0 (7.0-18.0) mg/dL Creatinine 1.06 (0.70-1.30) mg/dL Est GFR ( Amer) >60 (>=60 mL/min/1.73m^2) Est GFR (Non-Af Amer) >60 (>=60 mL/min/1.73m^2) BUN/Creatinine Ratio 9.4 Glucose 170 H (74-106) mg/dL Calcium 9.2 (8.5-10.1) mg/dL Total Bilirubin 2.8 H (0.2-1.0) mg/dL AST 8 L (15-37) U/L ALT 15 L (16-63) U/L Alkaline Phosphatase 70 (46-116) U/L Total Protein 6.9 (6.4-8.2) g/dL Albumin 3.9 (3.4-5.0) g/dL Globulin 3.0 g/dL Albumin/Globulin Ratio 1.3 Urine Color Lt. yellow (YELLOW) Urine Clarity Cloudy A (CLEAR) Urine pH 7.0 (5.0-9.0) Ur Specific [place] 1.015 (1.005-1.025) Urine Protein Trace (NEG/TRACE) mg/dL Urine Glucose (UA) Negative (NEGATIVE) mg/dL Urine Ketones Negative (NEGATIVE) mg/dL Urine Occult Blood Negative (NEGATIVE) Urine Nitrite Negative (NEGATIVE) Urine Bilirubin Negative (NEGATIVE) Urine Urobilinogen 1.0 (0.2-1.0) EU/dL Ur Leukocyte Esterase Negative (NEGATIVE) Urine RBC None seen (0-2) #/HPF Urine WBC 2-5 A (NONE SEEN) #/HPF Ur Squamous Epith Cells None seen (NONE/RARE) #/LPF Urine Crystals None seen (None Seen) #/HPF Amorphous Sediment Many Urine Bacteria Moderate A (NONE SEEN) #/HPF Urine Casts None seen (NONE SEEN) #/LPF Urine Mucus None seen (NONE SEEN) Ur Culture Indicated[place] [place] Salicylates <2.8 (<=19.9) mg/dL Urine Opiates Screen Negative (NEGATIVE) Ur Buprenorphine Scrn Negative (NEGATIVE) Ur Oxycodone Screen Negative (NEGATIVE) Urine Methadone Screen Negative (NEGATIVE) Acetaminophen <2.0 L (10.0-30.0) ug/mL Ur Barbiturates Screen Negative (NEGATIVE) U Tricyclic Antidepress Negative (NEGATIVE) Ur Phencyclidine Scrn Negative (NEGATIVE) Ur Amphetamines Screen Positive A (NEGATIVE) U Methamphetamines Scrn Positive A (NEGATIVE) U Benzodiazepines Scrn Negative (NEGATIVE) Urine Cocaine Screen Negative (NEGATIVE) U Cannabinoids Screen Positive A (NEGATIVE) Ethanol Quant <3 mg/dL ECG Data Attestation: I personally reviewed and interpreted this ECG as follows: (SR with HR 88, no acute/ischemic changes) Discharge Plan Discharge Chief Complaint: Psychiatric Symptoms Clinical Impression: Depression with suicidal ideation Patient Disposition: Xfer Acute Care Hospital Discharge location: [facility] facility Condition: Good
--- OUTSIDE RECORDS SUMMARY | 2024-12-13 18:19 | XMS_ITS | CCD ---
Author Organization [facility] Inform ion Partnership [facility] Care Team Providers Care Clock Smith Name Role Phone ZAIRE COLLINS Consult[employer] Unavailable [...] Episodic E Codes: Unspecified (1 source) Activity, qatari tackle football; Translations: [ACTIVITY [place] TACKLE FOOTBALL] Onset: 12-21-2021 Episodic Other non-traumatic joint disorders (3 sources) Pain in right wrist; Translations: [PAIN IN RIGHT WRIST] Onset: 12-20-2021 Episodic Sprains and strains (1 source) Strain of unspecified muscle, fascia and tendon at wrist and hand level, right hand, initial encounter; Translations: [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 HND RT HND INIT] Onset: 12-21-2021 [...] Reference Range Facil ity Registrationon 10-23-2023 Registration [id number] 5#[id number] Normal [facility] XR HAND RT MIN 3Von 12-21-19 [...] by: Alma PARRISH Date: 2021-12-20 00:44 Normal [facility] Encounters Encounter Date Encounter Type Care Provider Facility Start: 06-17-2024 End: 06-17-2024 ambulatory Heather KEEN Facility:[facility] Start: 10-18-2023 End: 10-18-2023 ambulatory Roberto SIMRAN Facility:[facility] Start: 10-17-2023 End: 10-17-2023 ambulatory HAO ULLOASIOBHAN Not Available Start: 10-15-2023 End: 10-15-2023 ambulatory JAMESCE ANDRIA Not Available Start: 12-20-2021 End: 12-20-2021 ambulatory TOPHER PAREKH Facility:[facility] Start: 02-09-2021 End: 02-09-2021 ambulatory ZAIRE COLLINS Facility:[facility] Payers Date Payer Category Payer Medicaid [id number] 2000 Unknown [id number] 2.16.84 [id number] 2000 Unknown [id number] 2.16.84 [id number] 2001 Unknown [id number] 2.16.84 [id number] 2001 Unknown [id number] 2.16.84 [id number] 1979 Unknown [id number] 2.16.8 [id number] 1979 Unknown [id number] 2.16.8 [id number] 1959 Unknown [id number] Summary Purpose Family History No Family History Records FoundNo Family History Records FoundNo Family History Records Found Advance Directives No Advanced Directives Records FoundNo Advanced Directives Records FoundNo Advanced Directives Records Found Additional Source Comments (unrecognized sect ion and content) No Status Records FoundNo Status Records FoundNo Status Records Found INFORMATION SOURCE (unrecogn ized section and content) DATE CREATED AUTHOR 12/23/2021 [facility] DATE CREATED AUTHOR AUTHOR'S ORGANIZ ATION 10/19/2023 [facility] EPIC DATE CREATED AUTHOR AUTHOR'S ORGANIZ ATION 06/20/2024 [facility] FOR RECORDS PERTAINING TO PATIENTS WHO [...] BE BASED ON THE PRIMARY CLINICAL RECORDS. [employer] provides no warranty or guarantee of the accuracy or completeness of information in this document.
[2024-12-13 18:43] LABS: Hematocrit 46.0 % (42.0-54.0); Hemoglobin 15.9 g/dL (14.0-18.0); Immature Granulocytes Abs Auto 0.02 10^3/uL (0.00-0.03); Immature Granulocytes Pct Auto 0.3 % (0.0-0.5); Lymphocytes Absolute Auto 2.0 10^3/uL (1.2-3.8); Mean Corpuscular HGB Conc 34.6 g/dL (29.9-35.2); Mean Corpuscular Hemoglobin 30.0 pg (25.9-34.0); Mean Corpuscular Volume 86.8 fL (80.0-94.0); Platelet Count 258 10^3/uL (150-450); Red Blood Count 5.30 10^6/uL (4.70-6.10); White Blood Count 7.2 10^3/uL (4.0-11.0)
[2024-12-13 18:56] LABS: Alanine Aminotransferase 15 U/L (16-63); Albumin Globulin Ratio 1.3; Albumin Level 3.9 g/dL (3.4-5.0); Alkaline Phosphatase 70 U/L (46-116); Anion Gap 10.5; Aspartate Amino Transferase 8 U/L (15-37); Blood Urea Nitrogen 10.0 mg/dL (7.0-18.0); Calcium 9.2 mg/dL (8.5-10.1); Carbon Dioxide 30.2 mmol/L (21.0-32.0); Chloride 102 mmol/L (98-107); Estimated GFR (African America >60 (>=60 mL/min/1.73m^2); Estimated GFR (Non-African Ame >60 (>=60 mL/min/1.73m^2); Globulin 3.0 g/dL; Glucose 170 mg/dL (74-106); Potassium 3.7 mmol/L (3.5-5.1); Salicylate <2.8 mg/dL (<=19.9); Sodium 139 mmol/L (136-145); Total Protein 6.9 g/dL (6.4-8.2)
[2024-12-13 19:08] LABS: Acetaminophen <2.0 ug/mL (10.0-30.0)
[2024-12-13 19:26] LABS: Glucose Urine UA NEGATIVE (NEGATIVE)
[2024-12-13 19:33] LABS: Cast Seen? NONE SEEN #/LPF (NONE SEEN); Crystals Seen? None Seen #/HPF (None Seen); Urine Culture Indicated YES-FRMC
[2024-12-13 19:35] LABS: Cannabinoid Screen Urine POSITIVE (NEGATIVE)
[2024-12-13 19:36] LABS: Methamphetamines Screen Urine POSITIVE (NEGATIVE); Tricyclic Antidepressant Urine NEGATIVE (NEGATIVE)
[2024-12-14 00:43] VITALS: BP 126/75; PULSE 63; O2SAT 99
== END 2024-12-14 00:40 | disposition short-term general hospital (02) ==
PROVIDERS: Nurse Practitioner; Emergency Provider Emergency Medicine
DX: R45.851 Suicidal ideations (principal); F32.A Depression, unspecified
CPT/HCPCS: 36415; 80053; 80179; 80307; 80320; 80329; 81001; 85025; 87086; 93005; 99285